=== PATIENT | male | born 1945 | race Caucasian/White ===

== ENCOUNTER → 2018-11-09 09:20 | Outpatient (CLI) | payer MEDICARE, BC ==
--- NOTE | 2018-11-12 15:03 | EC ---
PATIENT:RAQUEL DALTON DATE OF SERVICE: 11/09/18 SEX: M MEDICAL RECORD: [id number] DATE OF : 45 LOCATION:D.[facility] AGE OF PATIENT: 73 ADMISSION DATE: 11/09/18 REFERRING PHYSICIAN: INTERPRETING PHYSICIAN: BONNIE ROBLES MD ECHOCARDIOGRAM REPORT ECHO CHARGES 4 ECHO COMPLETE Date: 11/09/18 CLINICAL DIAGNOSIS: EDEMA/HTN H/O A-FIB WITH RVR ECHOCARDIOGRAPHIC MEASUREMENTS (adult normal given) AC root (d.<3.7cm) 4.1 cm LV Septum d (<1.2 cm> 1.3 cm Valve Excursion 2.2 cm LV Septum (systole) 1.7 cm Left Atria (s.<4.0cm> 5.1 cm LVPW d(<1.2cm) 1.2 cm RV (d.<2.3cm) 4.1 cm LVPW (sytole) 1.9 cm LV diastole(<5.6CM) 5.8 cm MV E-F(>70mm/sec) cm LV systole 4.3 cm LVOT Diameter 2.3 cm MV exc.(>10mm) cm Est.ejection fraction (50-75%) % DOPPLER: LVIT cm/sec A cm/sec E 103 cm/sec LA cm/sec RVSP 56.0 mmHg LVOT 77.0 cm/sec AOP1/2T m/s Asc. Ao 126 cm/sec RVOT 44.0 cm/sec RA cm/sec PA 76.0 cm/sec AV Gradient Peak 6.4 mmHg AV Mean 3.1 mmHg AV Area 2.8 cm MV Gradient Peak 6.5 mmHg MV Mean 2.6 mmHg MV Area cm COMMENTS: OP - HC Cane Packer: 1 MILENA MUNIR Chief Engineer: 3 Dr. Ojeda TAPE# PACS Pericardial Effusion N DATE OF SERVICE: 11/09/2018 Adequate 2-D echo, color-flow and spectral Doppler, and M-mode. LVH is present. LV internal dimensions are normal. Wall motion is normal. EF is greater than or equal to 55%. Aortic valve sclerosis without stenosis by Doppler interrogation. Left atrium is dilated at 5.1 cm. Mitral valve shows no prolapse. Moderate MR. Right-sided chambers are grossly normal. Mild TR. TRANSINT:[id number] Voice Confirmation ID: [id number] DOCUMENT ID: [id number] ECHOCARDIOGRAM REPORT [id number] RAQUEL DALTON,BONNIE Ayon MD at 1503 CC: [id number] DICTATION DATE: 11/12/18 1244 NUTRITION SERVICES ASSOCIATE: 11/12/18 1304 DEP CLI 11/09/18 [place] [id number] [place] [id number]
== END | disposition home or self-care (01) ==
LOC: D.HCCARDIO 09:20
PROVIDERS: ATTEND Internal Medicine Interventional Cardiology
DX: I25.10 Atherosclerotic heart disease of native coronary artery without angina pectoris (principal)

== ENCOUNTER → 2019-03-18 08:47 | Outpatient (CLI) | payer MEDICARE, BC | END | disposition home or self-care (01) | LOC: D.NM 08:47 | PROVIDERS: ATTEND Family Medicine | DX: R93.89 Abnormal findings on diagnostic imaging of other specified body structures (principal) ==

== ENCOUNTER 2020-02-10 05:20 | Day surgery (SDC) | payer MEDICARE, BC ==
[2020-02-06 09:28] LABS: HEMATOCRIT 34.3 % (42.0-54.0); HEMOGLOBIN 11.8 g/dL (13.5-17.5); MCH 34.4 pg (26.0-34.0); MCHC 34.4 g/dL (31.0-37.0); MEAN PLATELET VOLUME 10.4 fL (7.4-10.4); RBC 3.43 10x6/uL (4.20-6.10); RDW 13.6 % (11.5-14.5); WBC 3.7 10x3/uL (4.8-10.8)
[2020-02-06 09:32] LABS: ANION GAP 12.3 mmol/L (8-16); CALCIUM 9.2 mg/dL (8.5-10.1); CREATININE - SERUM 1.4 mg/dL (0.6-1.3); POTASSIUM - SERUM 4.3 mmol/L (3.5-5.1)
[~2020-02-10] VITALS: Ht 190.5 cm; Wt 109.3 kg
[~2020-02-10 05:20] MED LIST: FERROUS SULFAT325 MG PO; FUROSEMIDE40 MG PO; LIPITOR40 MG PO; METOPROLOL TART50 MG PO; OMEGA-3100 MG PO; PROTONIX40 MG PO; VALSARTAN-HCTZ1 EAC1 PO; ZYLOPRIM300 MG PO
[2020-02-10 06:19] VITALS: BP 173/91; Ht 190.5 cm; Wt 109.3 kg
--- NOTE | 2020-02-10 07:57 | NUR ---
0725 BS RESULTS WERE 285 AFTER SECOND CHECK. ORDERS FOR IV INSULIN RECEIVED FROM DR GROSS. 0755 BLOOD SUGAR 246 AFTER [address] GROSS NOTIFIED AND ORDER RECEIVED FOR AN ADDITIONAL 10 UNITS OF REGULAR INSULIN IV.
[2020-02-10] MEDS ORDERED: DILAUDID2 MG PO (09:02)
--- NOTE | 2020-02-12 13:49 | OP ---
PATIENT NAME: RAQUEL DALTON MEDICAL RECORD: [id number] :45 LOCATION:D.[facility] ADMISSION DATE: SURGEON: KRUNAL GUILLEN MD DATE OF OPERATION: 02/10/2020 PREOPERATIVE DIAGNOSIS: Carpal tunnel syndrome of the right wrist. POSTOPERATIVE DIAGNOSIS: Carpal tunnel syndrome of the right wrist. PROCEDURE: Right carpal tunnel release. SURGEON: Krunal Guillen MD CRYSTAL LAPPER: JOSE ANTONIO Joe INTRAOPERATIVE COMPLICATIONS: None. SUMMARY OF PATHOLOGIC FINDINGS: The patient was indeed found to have very tight transverse carpal ligament consistent with preoperative diagnosis, EMGs and NCVs. OPERATIVE SUMMARY IN DETAIL: After obtaining the appropriate preoperative orthopedic surgery consent as well as anesthetic consultation, evaluation and clearance, the patient was brought to the operating room and placed on the operating table in supine position. After adequate general laryngeal mask airway was administered, tourniquet was placed about the proximal aspect of the right upper extremity. Right upper extremity was then prepped and draped in routine sterile fashion. The arm was elevated and exsanguinated, tourniquet was inflated to 250 mmHg. Routine midpalmar incision was made along the fourth metacarpal ray. This incision was taken down to the distal aspect. The transverse carpal ligament was identified. This was incised to identify the median nerve. A [place] elevator was then placed over the median nerve for protection and direct visualization. A combination of the Kiet light knife as well as small scissors were utilized to release the transverse carpal ligament in its entirety. Having completed this, the wound was irrigated, locally infiltrated with local anesthetics and then closed by JOSE ANTONIO Joe. Sterile dressings were applied. The patient was awakened, taken to recovery room in stable condition. All final needle and sponge counts were correct. TRANSINT:[id number] Voice Confirmation ID: [id number] DOCUMENT ID: [id number] KRUNAL GUILLEN MD at 1349 CC: [id number] DICTATION DATE: 02/10/20 09 CRAFT RECRUITER: 02/10/20 1620 [facility] 02/10/20 [place] [address]
== END 2020-02-10 10:20 | disposition home or self-care (01) ==
LOC: D.OPS 05:20 → D.PAN 12:30
PROVIDERS: Anesthesiology; ATTEND Orthopaedic Surgery
DX: G56.01 Carpal tunnel syndrome, right upper limb (principal)